=== PATIENT | male | born 1955 | race Two or more races ===

== ENCOUNTER 2017-03-21 14:24 | Emergency (ER) | payer BC ==
[2017-03-21 15:05] VITALS: BP 167/83
--- NOTE | 2017-03-21 15:17 | UC ---
Skin Complaint HPI - HPI Summary HPI Summary: 61 y/o male presents to the urgent care c/o tick bite on RT arm pit he noticed this morning at 0800am. His removed part of it, but he thinks the head still on it. 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 Pt denies Hx of tick bites, fever, YOUNG, chest pain, N/V/D, joint pains. - History of Current Complaint Chief Complaint: UCSkin Time Seen by Provider: 03/21/17 15:09 Stated Complaint: TICK BITE Hx Obtained From: Patient Onset/Duration: Sudden Onset, Lasting Days - today, Still Present Skin Exposure Onset/Duration: Days Ago - 1 day Timing: Constant Onset Severity: Mild Current Severity: Mild Pain Intensity: 0 Pain Scale Used: 0-10 Numeric Location: Discrete - RT arm pit with tick bite Character: Redness Aggravating Factor(s): Touch Alleviating Factor(s): Nothing Associated Signs & Symptoms: Positive: Negative. Negative: Nausea, Vomiting, Fever, Chest Pain, Abdominal Pain, Tenderness Related History: Possible Reaction to: Insect - Allergy/Home Medications Allergies/Adverse Reactions: Allergies Allergy/AdvReac Type Severity Reaction Status Date / Time Penicillins Allergy jaundice Verified 03/21/17 15:05 Home Medications: Home Medications Aspirin [Aspirin 81 MG TAB] 1 tab PO DAILY 03/21/17 [History Confirmed 03/21/17] Crestor 20 mg PO DAILY 03/21/17 [History Confirmed 03/21/17] Review of Systems Constitutional: Negative Skin: Other - RT arm pit with tick bite Eyes: Negative ENT: Negative Respiratory: Negative Cardiovascular: Negative Gastrointestinal: Negative Genitourinary: Negative Motor: Negative Neurovascular: Negative Musculoskeletal: Negative Neurological: Negative Psychological: Negative Is Patient Immunocompromised?: No All Other Systems Reviewed And Are Negative: Yes PMH/Surg Hx/FS Hx/Imm Hx Previously Healthy: Yes Endocrine History: Dyslipidemia - Surgical History Surgical History: Yes Surgery Procedure, Year, and Place: tonsills and adnoids - Family History Known Family History: Positive: Cardiac Disease - Social History Occupation: Employed Full-time Lives: With Family Alcohol Use: Occasionally Substance Use Type: None Smoking Status (MU): Never Smoked Tobacco Physical Exam Triage Information Reviewed: Yes Vital Signs: Initial Vital Signs Temp 97.5 F 03/21/17 15:00 Pulse 77 03/21/17 15:00 Resp 16 03/21/17 15:00 BP 167/83 03/21/17 15:00 Pulse Ox 99 03/21/17 15:00 - Additional Comments Vital Signs Reviewed: Yes General: well developed, well nourished male sitting on the examining table w/o any apparent distress Eyes: Positive: Conjunctiva Clear - PERRLA, EOMI ENT: Positive: Normal ENT inspection, Hearing grossly normal, Pharynx normal, TMs normal Neck: Positive: Supple, Nontender, No Lymphadenopathy Respiratory: Positive: Chest nontender, Lungs clear, Normal breath sounds Cardiovascular: Positive: RRR, No Murmur, Pulses Normal Abdomen Description: Positive: Nontender, No Organomegaly, Soft. Negative: CVA Tenderness (R), CVA Tenderness (L) Bowel Sounds: Positive: Present Musculoskeletal: Positive: Strength Intact, ROM Intact, No Edema Neurological Exam: Normal Psychological Exam: Normal Skin: Positive: rashes - RT axilla with tick bite and remnants of tick surrounding erythema, non tender to palpation. tick no longer present, no swelling or drainage observed. Course/Dx - Course Course Of Treatment: 61 y/o male presents to the urgent care c/o tick bite on RT arm pit he noticed this morning at 0800 am. His removed part of it, but he thinks the head still on it. 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 Pt denies Hx of tick bites, fever, YOUNG, chest pain, N/V/D, joint pains.Hx obtained. Par of tick was removed with a 30G needle. Pt tolerated well procedure. Area cleaned with alcohol. Antibiotic prophylaxis with Doxycycline given to the patient to prevent lyme Disease.. Pt tolerated well medication. Pt advised to observe the area for the development or Erythema Migrans for upto 30 days following exposure. Advised if he develops fever or erythema Migrans to return to the clinic or PCP for further treatment . Pt wiht elevated BP today, advised to decrease salt in diet and f/u with PCP for furhter management. Pt understood and agreed with plan of care. - Differential Diagnoses - Skin Complaint Differential Diagnoses: Cellulitis, Local Allergic Reaction, MRSA, Tick Born Illness, Tinea, Urticaria, Other - bed buf, insect bite, bee sting - Diagnoses Provider Diagnoses: 1- RT axilla tick bite. 2- Elevated BP w/o Hx of HTN Discharge - Discharge Plan Condition: Stable Disposition: HOME Prescriptions: Bacitracin OINTMENT* 1 applic TOPICAL TID #1 tube Patient Education Materials: Tick Bite (ED) Referrals: Destinee WESTON,Ruddy Conroy [Medical Doctor] - If Needed Mai Hudson MD [Primary Care Provider] - 2 Weeks Additional Instructions: 1- Please observe the area for the development or Erythema Migrans for upto 30 days following exposure. Components of the tick saliva can cause transient erythema that should not be confused with Erythema Migrans. Apply Bacitracin topical antibiotic on tick bite as directed 2-Antibiotic prophylaxis with Doxycycline was given to you today to prevent lyme Disease. 3-If you develop fever, Headache , bull's eye rash please f/u with your PCP for Lyme Serology further management. 4- Your BP is elevated today, please decrease salt in your diet and monitor BP if it continues to be elevated please f/u with your PCP for further management
[2017-03-21] MEDS ORDERED: DOXYcycline CAP(*) 100 MG PO ONE (15:24)
== END 2017-03-21 15:39 | disposition home or self-care (01) ==
LOC: UCEAST 14:24
DX: S40.861A Insect bite (nonvenomous) of right upper arm, initial encounter (principal); W57.XXXA Bitten or stung by nonvenomous insect and other nonvenomous arthropods, initial encounter; Y93.9 Activity, unspecified; Y92.9 Unspecified place or not applicable; R03.0 Elevated blood-pressure reading, without diagnosis of hypertension; E78.5 Hyperlipidemia, unspecified; Z88.0 Allergy status to penicillin
CPT/HCPCS: 99212; A9270-GY; G0463

== ENCOUNTER 2019-01-20 10:58 | Emergency (ER) | payer MEDICAID, OTHER ==
--- NOTE | 2019-01-20 13:51 | UC ---
General HPI - HPI Summary HPI Summary: PATIENT ARRIVES WITH WORSENING ANXIETY OVER THE PAST COUPLE OF WEEKS. STATES HE IS UNDER A LOT OF FINANCIAL STRESS AT THE MOMENT AND THAT OVER THE PAST FEW DAYS HE HAS BEEN HAVING TROUBLE SLEEPING. HAS OCCASIONAL PALPITATIONS AND FEELS HE CAN HEAR HIS HEART BEATING IN HIS HEAD. HE'S HAD A MILD LOW LEVEL HEADACHE FOR SEVERAL WEEKS. NO SHORTNESS OF BREATH, NAUSEA, CHEST PAIN. HAS A HISTORY OF HIGH CHOLESTEROL BUT DENIES ANY HEART DISEASE OR HYPERTENSION. 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 - History of Current Complaint Chief Complaint: UCGeneralIllness Stated Complaint: ANXIETY Time Seen by Provider: 01/20/19 12:37 Hx Obtained From: Patient Onset/Duration: Gradual Onset, Lasting Days, Still Present Timing: Constant Onset Severity: Moderate Current Severity: Moderate Pain Intensity: 0 Associated Signs & Symptoms: Positive: Dizziness - PRE-SYNCOPAL, Headache, Palpitations. Negative: Nausea, Syncope, SOB - Allergy/Home Medications Allergies/Adverse Reactions: Allergies Allergy/AdvReac Type Severity Reaction Status Date / Time Penicillins Allergy jaudice Verified 01/20/19 11:12 Home Medications: Home Medications Tamsulosin CAP* [Flomax CAP*] 1 tab PO DAILY 01/20/19 [History Confirmed ] PMH/Surg Hx/FS Hx/Imm Hx Endocrine History: Dyslipidemia Psychological History: Anxiety - Surgical History Surgical History: Yes Surgery Procedure, Year, and Place: tonsills and adnoids - Family History Known Family History: Positive: Cardiac Disease - Social History Alcohol Use: Occasionally Substance Use Type: None Smoking Status (MU): Never Smoked Tobacco Review of Systems All Other Systems Reviewed And Are Negative: Yes Constitutional: Positive: Negative Respiratory: Positive: Negative Cardiovascular: Positive: Palpitations Gastrointestinal: Positive: Negative Neurological: Positive: Headache, Other - FAINT Psychological: Positive: Anxious Physical Exam Triage Information Reviewed: Yes Appearance: Well-Appearing, No Pain Distress, Well-Nourished Vital Signs: Initial Vital Signs Temp 98 F 01/20/19 11:09 Pulse 88 01/20/19 11:09 Resp 18 01/20/19 11:09 BP 152/101 01/20/19 11:09 Pulse Ox 98 01/20/19 11:09 Vital Signs Reviewed: Yes Eyes: Positive: Conjunctiva Clear ENT: Positive: Hearing grossly normal Neck: Positive: Supple Respiratory Exam: Normal Cardiovascular Exam: Normal Abdomen Description: Positive: Soft Musculoskeletal: Positive: No Edema Neurological: Positive: Alert Psychological: Positive: Age Appropriate Behavior Skin: Negative: Rashes Diagnostics - EKG Cardiac Rate: NL - 71BPM Cardiac Rhythm: Sinus: Normal Ectopy: None ST Segment: Normal Course/Dx - Course Course Of Treatment: PATIENT WITH SIGNIFICANT ANXIETY DUE TO FINANCIAL CONCERNS THAT HAS BEEN GETTING WORSE OVER THE PAST COUPLE OF WEEKS. STATES FOR THE PAST FEW DAYS HE HAS BEEN HAVING DIFFICULTY SLEEPING AND HAVING INTERMITTENT PALPITATIONS. HAS A HISTORY OF PVCS. IN THE HIS BLOOD PRESSURE WAS FOUND TO BE OVER 200/100. HE HAS A MILD HEADACHE AND DURING EXAMINATION FELT IF HE WOULD PASS OUT. PATIENT ALSO REPORTS A PRESYNCOPAL EPISODE YESTERDAY AFTER GOING FOR A WALK. PATIENT REQUIRES HIGHER LEVEL OF SERVICE THAN WHAT IS AVAILABLE IN THE URGENT CARE. TO THE [facility] BY AMBULANCE. - Diagnoses Provider Diagnosis: Hypertensive crisis, Anxiety - Physician Notifications Discussed Patient Care With: Home [facility] - TO [facility] BY AMBULANCE Time Discussed With Above Provider: 13:25 Instructed by Provider To: MD Will See In ED Discharge ED - Sign-Out/Discharge Documenting (check all that apply): Patient Departure All imaging exams completed and their final reports reviewed: No Studies - Discharge Plan Condition: Stable Disposition: TRANS HIGHER LVL OF CARE FAC Prescriptions: LORazepam TAB(*) [Ativan 0.5 MG TAB (*)] 0.5 mg PO BID PRN #20 tab MDD 2 PRN Reason: Anxiety Patient Education Materials: Anxiety (ED) Referrals: [facility] [Outside] Chidi Lang MD [Primary Care Provider] - 5 Days Additional Instructions: TO THE [facility] BY AMBULANCE FOR FURTHER EVALUATION OF YOUR HIGH BLOOD PRESSURE, FEELING OF FAINTNESS AND HEADACHE. GIVEN YOUR UNDERLYING ANXIETY A PRESCRIPTION HAS BEEN SENT FOR ATIVAN TO HELP WITH YOUR ACUTE SYMPTOMS. BEWARE THAT THIS IS NOT A LONG-TERM SOLUTION AND THAT THIS MEDICATION CAN BE HABIT FORMING. YOU MUST FOLLOW-UP WITH YOUR PRIMARY TO DISCUSS BETTER LONG-TERM TREATMENT OPTIONS. CALL THE NUMBER BELOW FOR ASSISTANCE IN ESTABLISHING WITH A PCP An additional resource available to assist in finding the appropriate physician for your health care needs is the [facility] (Rita Ferguson). You may contact them by calling [phone]. [facility] Address: [address] [place] [id number] 8:30AM-4:30PM - Billing Disposition and Condition Condition: STABLE Disposition: Trans Higher Lvl of Care Fac
[2019-01-20 14:06] VITALS: BP 199/103
== END 2019-01-20 14:11 | disposition short-term general hospital (02) ==
LOC: UCEAST 10:58
DX: F41.9 Anxiety disorder, unspecified (principal); I16.9 Hypertensive crisis, unspecified; E78.5 Hyperlipidemia, unspecified; Z88.0 Allergy status to penicillin
CPT/HCPCS: 93005; 99213; G0463

== ENCOUNTER 2019-01-20 14:30 | Emergency (ER) | payer MEDICAID, OTHER ==
[2019-01-20] MEDS ORDERED: LORazepam TAB(*) 1 MG PO ONE (14:58)
[2019-01-20 15:16] LABS: ABS Basophils 0.1 10^3/ul (0-0.2); ABS Eosinophils 0.1 10^3/ul (0-0.6); ABS Monocytes 0.6 10^3/ul (0-0.8); ABS Neutrophils 7.9 10^3/ul (1.5-7.7); Eosinophil % 0.5 %; Hematocrit 45 % (42-52); Hemoglobin 15.4 g/dL (14.0-18.0); Lymphocyte % 10.8 %; Mean Corpuscular HGB Conc 34 g/dL (31-36); Mean Corpuscular Hemoglobin 31 pg (27-31); Mean Corpuscular Volume 89 fL (80-94); Mean Platelet Volume 6.9 fL (7.4-10.4); Nucleated Red Blood Cells % 0.1; Platelet Count 311 10^3/uL (150-450); Red Blood Count 5.05 10^6 /uL (4.18-5.48); Red Cell Distribution Width 13 % (10-15); White Blood Count 9.6 10^3/uL (3.5-10.8)
--- NOTE | 2019-01-20 15:24 | ED ---
Hypertension - HPI Summary HPI Summary: Pt is a 63 y/o M presenting to the ED brought in by EMS from [facility] for high blood pressure. He states that he has been experiencing extreme levels of financial stress for a while, and his anxiety has peaked over the past couple of weeks. Today, it worsened to the point where he went to seek help at , and they found that his BP was very high. He reports recent fatigue and slight SOB on exertion occasionally, with a notable episode of SOB, lightheadedness, and diaphoresis after a walk with his . He denies vomiting , diarrhea, or myalgia. 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 He has an allergy to Penicillin. Medications reviewed, allergies noted. - History of Current Complaint Chief Complaint: EDHypertension Stated Complaint: HIGH BP PER EMS Hx Obtained From: Patient Onset/Duration: Started Hours Ago, Still Present Timing: Constant, Lasting Hours Aggravating Factor(s): Other: - anxiety Alleviating Factor(s): Nothing Associated Signs & Symptoms: Anxiety/Stress, Dizziness, SOB - Allergies/Home Medications Allergies/Adverse Reactions: Allergies Allergy/AdvReac Type Severity Reaction Status Date / Time Penicillins Allergy jaudice Verified 01/20/19 11:12 Home Medications: Home Medications Acyclovir* [Zovirax 200 MG CAP*] 200 mg PO BID PRN 01/20/19 [History Confirmed 01/20/19] Aspirin EC TAB* [Ecotrin EC Low Dose 81 MG*] 81 mg PO DAILY 01/20/19 [History Confirmed 01/20/19] Atorvastatin* [Lipitor*] 20 mg PO DAILY 01/20/19 [History Confirmed 01/20/19] LoraTADine TAB(NF) [Claritin 10 MG TAB(NF)] 10 mg PO DAILY PRN 01/20/19 [ History Confirmed 01/20/19] PMH/Surg Hx/FS Hx/Imm Hx Previously Healthy: Yes Endocrine/Hematology History: Reports: Hx Anticoagulant Therapy - occasional baby aspirin, gives him nosebleeds Denies: Hx Diabetes Cardiovascular History: Denies: Hx Hypertension - Surgical History Surgery Procedure, Year, and Place: tonsills and adnoids Infectious Disease History: No Infectious Disease History: Denies: History Other Infectious Disease, Traveled Outside the [place] in Last 30 Days - Family History Known Family History: Positive: Cardiac Disease - Social History Lives: With Family Alcohol Use: Daily - "1 jose most days of the week, but not all" Hx Substance Use: No Substance Use Type: Reports: None Hx Tobacco Use: No Smoking Status (MU): Never Smoked Tobacco Review of Systems Positive: Fatigue, Skin Diaphoresis - on exertion, Other - HTN Positive: Shortness Of Breath - on exertion Negative: Vomiting, Diarrhea Negative: Myalgia Neurological: Other - lightheadedness on exertion Positive: Anxious All Other Systems Reviewed And Are Negative: Yes Physical Exam - Summary Physical Exam Summary: Constitutional: Well-developed, Well-nourished, Alert. Slight pressured speech, appears anxious Skin: Warm, Dry HENT: Normocephalic; Atraumatic Eyes: Conjunctiva normal Neck: Musculoskeletal ROM normal neck. (-) JVD, (-) Stridor, (-) Tracheal deviation Cardio: Rhythm regular, rate normal, Heart sounds normal; Intact distal pulses; The pedal pulses are 2+ and symmetric. Radial pulses are 2+ and symmetric. (-) Murmur Pulmonary/Chest wall: Effort normal. (-) Respiratory distress, (-) Wheezes, (-) Rales Abd: Soft, (-) tenderness, (-) Distension, (-) Guarding, (-) Rebound Musculoskeletal: (-) Edema Lymph: (-) Cervical adenopathy Neuro: Alert, Oriented x3 Psych: Mood and affect anxious Triage Information Reviewed: Yes Vital Signs On Initial Exam: Initial Vitals Temp Pulse Resp BP Pulse Ox 96.5 F 83 16 199/104 97 01/20/19 14:40 01/20/19 14:40 01/20/19 14:40 01/20/19 14:40 01/20/19 14:40 Vital Signs Reviewed: Yes Diagnostics - Vital Signs Vital Signs Temp Pulse Resp BP Pulse Ox 01/20/19 14:40 96.5 F 83 16 199/104 97 - Laboratory Lab Results: Lab Results 01/20/19 Range/Units 15:05 WBC 9.6 (3.5-10.8) 10^3/uL RBC 5.05 (4.18-5.48) 10^6 /uL Hgb 15.4 (14.0-18.0) g/dL Hct 45 (42-52) % MCV 89 (80-94) fL MCH 31 (27-31) pg MCHC 34 (31-36) g/dL RDW 13 (10-15) % Plt Count 311 (150-450) 10^3/uL MPV 6.9 L (7.4-10.4) fL Neut % (Auto) 82.0 % Lymph % (Auto) 10.8 % [place] % (Auto) 6.0 % Eos % (Auto) 0.5 % Baso % (Auto) 0.7 % Absolute Neuts (auto) 7.9 H (1.5-7.7) 10^3/ul Absolute Lymphs (auto) 1.0 (1.0-4.8) 10^3/ul Absolute Monos (auto) 0.6 (0-0.8) 10^3/ul Absolute Eos (auto) 0.1 (0-0.6) 10^3/ul Absolute Basos (auto) 0.1 (0-0.2) 10^3/ul Absolute Nucleated RBC 0.0 10^3/ul Nucleated RBC % 0.1 Result Diagrams: 01/20/19 15:05 01/20/19 15:05 Lab Statement: Any lab studies that have been ordered have been reviewed, and results considered in the medical decision making process. - EKG 1453 Cardiac Rate: NL - 78bpm EKG Rhythm: Sinus Rhythm ST Segment: Normal Ectopy: None Summary of EKG Findings: EKG at 1453 shows NSR at 78bpm with nml intervals, nml axis, no STEMI. Hypertension Course/Dx - Course Course Of Treatment: Patient is here with severe anxiety and hypertension. Patient has had high blood pressure off and on for the past couple of years. Patient is currently under a very situation due to his finances. Patient is given a dose of Ativan here with multiple symptoms. Patient's CBC, CMP, TSH, UDS performed which are all grossly unremarkable. Patient started on Vistaril and lisinopril. Patient encouraged follow-up with his primary care doctor for further evaluation and management of his hypertension and anxiety. - Diagnoses Provider Diagnoses: Anxiety, HTN (hypertension) Discharge ED - Sign-Out/Discharge Documenting (check all that apply): Patient Departure - discharge Patient Received Moderate/Deep Sedation with Procedure: No - Discharge Plan Condition: Stable Disposition: HOME Prescriptions: hydrOXYzine pamoate [Vistaril] 25 mg PO Q8HR PRN #20 capsule PRN Reason: Anxiety Lisinopril TAB* [Prinivil TAB 10 MG*] 10 mg PO DAILY 30 Days #30 tab Patient Education Materials: Chronic Hypertension (ED), Anxiety (ED) Referrals: Chidi Lang MD [Primary Care Provider] - As Soon As Possible Additional Instructions: TAKE THE MEDICATIONS PRESCRIBED. FOLLOW UP WITH YOUR PRIMARY CARE PHYSICIAN TO HAVE YOUR BLOOD PRESSURE RE-CHECKED AND TO DISCUSS ANXIETY. PLEASE RETURN TO THE EMERGENCY DEPARTMENT FOR ANY NEW OR WORSENING SYMPTOMS. - Billing Disposition and Condition Condition: STABLE Disposition: Home - Attestation Statements Document Initiated by Nevin: Yes Documenting Scribe: Jose Bailey Provider For Whom Nevin is Documenting (Include Credential): Gerson Benz MD. Scribe Attestation: I, Jose Bailey, scribed for Gerson Benz MD. on 01/20/19 at 1821. Scribe Documentation Reviewed: Yes Provider Attestation: The documentation as recorded by the scribe, Jose Bailey accurately reflects the service I personally performed and the decisions made by Gerson vazquez MD. Status of Scribe Document: Viewed
[2019-01-20 15:35] LABS: Albumin 4.6 g/dL (3.2-5.2); Albumin/Globulin Ratio 1.8 (1-3); Calcium 9.6 mg/dL (8.6-10.3); EGFR African American 124.3 (>60); EGFR Non-African American 102.7 (>60); Globulin 2.5 g/dL (2-4); Potassium 3.8 mmol/L (3.5-5.0); Total Bilirubin 0.4 mg/dL (0.2-1.0); Total Protein 7.1 g/dL (6.4-8.9)
[2019-01-20 15:43] LABS: Urine Benzodiazepine Screen None Detected (None Detect); Urine Opiates Screen None Detected (None Detect)
[2019-01-20 17:04] LABS: TSH (Thyroid Stimulating Horm) 1.13 mcIU/mL (0.34-5.60)
[2019-01-20 17:52] VITALS: BP 170/104
== END 2019-01-20 17:51 | disposition home or self-care (01) ==
LOC: ED 14:30
DX: F41.9 Anxiety disorder, unspecified (principal); I10 Essential (primary) hypertension; Z79.82 Long term (current) use of aspirin; Z79.899 Other long term (current) drug therapy; Z88.0 Allergy status to penicillin
CPT/HCPCS: 36415; 80053; 80307; 84443; 85025; 93005; 99283; A9270-GY